=== PATIENT | male | born 1995 | race Caucasian/White ===

== ENCOUNTER 2021-08-16 10:05 | Inpatient (IN) | payer MEDICAID, SELFPAY ==
[2021-08-16 10:05] VITALS: BMI 17.2
[2021-08-16 10:14] VITALS: BP 120/89; PULSE 134; RESP 17; TEMP 36.7; O2SAT 97
[2021-08-16 14:00] VITALS: BP 120/89; PULSE 134; RESP 17; TEMP 36.7; O2SAT 97
--- NOTE | 2021-08-16 17:34 | W.PM.NPUH&PS ---
Providers/Chief Complaint Admitting Physician: Simeon Edwards MD Chief Complaint: hx schizo, HI HPI NPU History of Present Illness Dino Lyles is a 26 year old male who was admitted to an outside hospital with concerns of psychosis and being off of his medication, concerns for homicidal ideation with a history of schizophrenia, recent discharge from outside hospital with recent resumption of his medication, but still with significant symptoms. He was transferred to [facility] and admitted to the neuropsychiatric unit for definitive treatment of those issues. He presents today reporting that he has been hospitalized at least five times before this, but reports the last hospitalization was maybe a year ago, which consultation with family suggested that is incorrect, and he was just recently in the hospital in the last month and not in the last week or so. He reports that he has not had outpatient services recently but has had treatment in [place]. He reports he has been on Invega but tells a very convoluted story about him being on Invega and whether the Invega is helpful. The report from the family is that he had been off of the Invega for some time and recently was hospitalized and restarted on it, and his story that he is taking the Invega now, is accurate reportedly, but the inaccuracy is that he has only been reportedly taking it again, if he is taking it for about a week or so. He reports he does not feel the Invega is helping or at least completely clearing his symptom clusters. Mom reports that even on the Invega, which he feels he is taking it as prescribed, that he does not seem to be able to function in the social settings that he needs to be in, raising concerns for the need for a change. He reports smoking about a half pack of cigarettes a day, drinking alcohol socially, endorsing marijuana use daily. He reports he has had issues with methamphetamine. It is unclear how recently. He reports he has been to a rehab in the past and has had a DUI. When asked when this first started happening when he was having voices and paranoia, and having concerns for schizophrenia, he said that it started when he started taking the Invega, and so we had a long discussion about that and eventually he was able to say that it was not when the Invega started, it was when the schizophrenia started, but then he could not give any sense of whether there were psychotic symptoms predating the drug use. He did report having a presentation of psychosis likely four or so years ago that the Invega did initially treat, and he reports that it was working but that it stopped working, but then he could give no history about his adherence to the medication. He denies any history of suicide attempts, denies any history of self-injurious behavior, denies ever being on Abilify. He does report also having anxiety. We discussed the risks, benefits, and alternatives of adding Abilify to his regimen, and he understood and agreed to proceed as is documented in this note. PSYCHIATRIC HISTORY: As above. SUBSTANCE ABUSE HISTORY: As above. FAMILY HISTORY: He reports mental health issues on his mother?s side of the family, but denies any other addiction, suicide attempts or completions on either side of the family. DEVELOPMENTAL HISTORY: He endorses being breech. He reports learning to walk and talk and meeting his developmental milestones on time, and denies any need for speech therapy, learning support, emotional support, or special education classes when he went off to school. PSYCHOSOCIAL HISTORY: He reports that his mother and father were together when he was born and that he is the only product of that union. He denies that his mother had any other children, but reports his father had two other children. When asked about his childhood, he reported he did not know; but fine he guesses. He denies any emotional, physical, or sexual abuse. He endorses that he graduated from high school, denies any additional training. He endorses being a heterosexual with his longest relationship being six months. He reports he has never been , he has never had children, he has never been in the , and endorses being Confucianist. He reports that his longest work history is about six months. He currently lives in a house with his mom and not clear if he meant her roommates or his roommates. LEGAL HISTORY: He reports he has been to snf maybe four times; the longest time was seven months. MEDICAL HISTORY: Denied. Meds NPU Home Medications Medication Instructions Recorded Confirmed Last Taken Type benztropine 1 mg PO DAILY 08/16/21 08/16/21 Unknown History paliperidone [Invega] 6 mg PO QAM 08/16/21 08/16/21 Unknown History Allergies Allergy/AdvReac Type Severity Reaction Status Date / Time haloperidol [From Haldol] Allergy Unknown Verified 08/16/21 18:58 Mental Status Exam MSE Comments: This is an underweight, thin, white male, in hospital scrubs, with limited grooming, and eye contact. No abnormal movements except for psychomotor retardation. Semi-cooperative with exam in mild distress. Speech was decreased rate and volume. Mood described as I don?t know; affect slightly irritable. Thought process, mostly organized. Thought content: patient denied any suicidal or homicidal ideation, there were no delusions reported or noted, but there was some concern for paranoia. He denied any auditory or visual hallucinations but has had them. Attention and concentration were limited, and memory was mostly reliable, but none were formally tested. He is alert and oriented times three. Insight and judgment are limited, and impulse control is impaired. Vitals/I&O/Wt Last Vital Signs Temp 98.0 F 08/16/21 14:00 Pulse 134 H 08/16/21 14:00 Resp 17 08/16/21 14:00 BP 120/89 08/16/21 14:00 Pulse Ox 97 08/16/21 14:00 A&P Assessment and plan (1) Schizophrenia: Status: Acute (2) Methamphetamine dependence: Status: Acute Additional A&P Information This is a 26-year-old, white male, with long-standing mental health and addiction issues, who presents with issues with adherence to his medication, but reporting an openness to try a new medication and be referred to appropriate services. RECOMMENDATION AND PLAN: 1. Continue current medication. Will add Abilify 10 mg po qam with the possibility of injection down the line, and determine whether a medication to be given with the Invega or whether to taper off the Invega. 2. Encourage individual, group, and milieu therapy. 3. Continue q-15 minute checks for safety. 4. Encourage sober living treatment after discharge, at the highest level of care, to which he is willing to commit. Attestations NPU Medical Necessity Statement*: Inpatient hospitalization is medically necessary and the clinically appropriate intervention, at this time. We will monitor medications and make changes as indicated. Patient will be in the hospital for over two midnights. Likely length of stay is three to five days. Coding Level of Care Code Acute Frame Aligner for Michael Fitch Diagnoses Schizophrenia F20.9 Methamphetamine dependence F15.20
[2021-08-16] MEDS: benztropine 1 mg Tablet PO (19:14)
[2021-08-16] MEDS: ARIPiprazole 10 mg Tablet PO (19:14)
[2021-08-16] MEDS: paliperidone ER 6 mg Tablet PO (19:14)
[2021-08-16 20:16] VITALS: BP 125/81; PULSE 84; RESP 16; O2SAT 98
--- NOTE | 2021-08-16 21:00 | PC.NURSE ---
Patient arrives to unit from [facility] C/O AH & psychosis wanting admit to psych unit, states feelings of losing control. HX of meth abuse, denies SI/HI, states he doesn't think his meds are working. Patient A/Ox3, cooperative during admission, appears anxious & pacing at times.
[2021-08-17 06:00] VITALS: BP 107/66; PULSE 101; RESP 16; O2SAT 98
[2021-08-17] MEDS: paliperidone ER 6 mg Tablet PO (08:35)
[2021-08-17] MEDS: ARIPiprazole 10 mg Tablet PO (08:35)
[2021-08-17] MEDS: benztropine 1 mg Tablet PO (08:35)
[2021-08-17] MEDS: nicotine 2 mg Gum BUCCAL ×2 (11:58→18:21)
[2021-08-17 14:00] VITALS: BP 114/67; PULSE 106; RESP 20; TEMP 36.7; O2SAT 96
--- NOTE | 2021-08-17 18:34 | W.PM.NPUPNS ---
Subjective NPU Subjective: Interval history: Patient presents today reporting that he feels better and wants to go home. Discussed that the medication does seem to be helping and that we need to see if that is a pattern not just a trend. We also agreed that we would reach out to his family and see how they think he is doing to make sure that his sense of improvement is reflecting and how his behavior is manifesting. Mental Status Exam MSE Comments: This is an underweight, thin, white male, in hospital scrubs, with limited grooming, and eye contact. No abnormal movements except for psychomotor retardation. Semi-cooperative with exam in mild distress. Speech was more normal rate and volume. Mood described as a little better; affect less irritable. Thought process, mostly organized. Thought content: patient denied any suicidal or homicidal ideation, there were no delusions reported or noted, but there was some concern for paranoia. He denied any auditory or visual hallucinations but has had them. Attention and concentration were limited, and memory was mostly reliable, but none were formally tested. He is alert and oriented times three. Insight and judgment are limited, and impulse control is impaired, but improving. Vitals/I&O/Wt Last Vital Signs Temp 97.5 F L 08/17/21 19:57 Pulse 98 08/17/21 19:57 Resp 18 08/17/21 19:57 BP 119/78 08/17/21 19:57 Pulse Ox 98 08/17/21 19:57 Weight last 48 hrs Weight 54.431 kg A&P Additional A&P Information (1) Schizophrenia: (2) Methamphetamine dependence: Additional A&P Information This is a 26-year-old, white male, with long-standing mental health and addiction issues, who presents with issues with adherence to his medication, but reporting an openness to try a new medication and be referred to appropriate services. RECOMMENDATION AND PLAN: 1. Continue current medication. Will add Abilify 10 mg po qam with the possibility of injection down the line, and determine whether a medication to be given with the Invega or whether to taper off the Invega. 2. Encourage individual, group, and milieu therapy. 3. Continue q-15 minute checks for safety. 4. Encourage sober living treatment after discharge, at the highest level of care, to which he is willing to commit. Involuntary Hold Information 96 Hour Hold: 96 Hour Involuntary Admission: No Attestations NPU Medical Necessity Statement*: Inpatient hospitalization is medically necessary and the clinically appropriate intervention, at this time. We will monitor medications and make changes as indicated. Likely length of stay is 2-4 days. Coding Level of Care Code Acute Cloth Brushing And Sueding Supervisor for Michael Fitch
[2021-08-17 19:57] VITALS: BP 119/78; PULSE 98; RESP 18; TEMP 36.4; O2SAT 98
[2021-08-17] MEDS: hyDROXYzine 25 mg Capsule 50 MG PO (21:30)
[2021-08-17] MEDS: trazodone 50 mg Tablet PO (21:31)
--- NOTE | 2021-08-17 21:56 | PC.NURSE ---
Patient c/o insomnia. Give hydroxizine 50 mg po and and trazadone 50 mg po.
[2021-08-18] MEDS: nicotine 2 mg Gum BUCCAL ×2 (04:32→09:15)
--- NOTE | 2021-08-18 04:34 | PC.NURSE ---
Patient request for nicotine gum given.
[2021-08-18 06:35] VITALS: BP 123/83; PULSE 93; RESP 20; TEMP 36.5; O2SAT 98
[2021-08-18] MEDS: ARIPiprazole 10 mg Tablet PO (09:03)
[2021-08-18] MEDS: paliperidone ER 6 mg Tablet PO (09:03)
[2021-08-18] MEDS: benztropine 1 mg Tablet PO (09:03)
[2021-08-18 14:00] VITALS: BP 128/80; PULSE 82; RESP 15; TEMP 36.7; O2SAT 97
--- NOTE | 2021-08-18 14:35 | P.NPUPN_ITS ---
Subjective NPU Subjective: Interval history: Patient continues to show improvement on Abilify family reporting that they have not been doing better as well. We discussed the risk-benefit alternatives of discharge in the morning and he understood agreed proceed as is documented in this note. Mental Status Exam MSE Comments: This is an underweight, thin, white male, in hospital scrubs, with limited grooming, and eye contact. No abnormal movements. Cooperative with exam in no acute distress. Speech was more normal rate and volume. Mood described as better; affect less irritable. Thought process, mostly organized. Thought content: patient denied any suicidal or homicidal ideation, there were no delusions reported or noted, but there was some concern for resolving paranoia. He denied any auditory or visual hallucinations but has had them. Attention and concentration were improving, and memory was mostly reliable, but none were formally tested. He is alert and oriented times three. Insight and judgment are limited, but improving and impulse control is improving. Vitals/I&O/Wt Last Vital Signs Temp 98.0 F 08/18/21 14:00 Pulse 82 08/18/21 14:00 Resp 15 08/18/21 14:00 BP 128/80 08/18/21 14:00 Pulse Ox 97 08/18/21 14:00 A&P Additional A&P Information (1) Schizophrenia: (2) Methamphetamine dependence: Additional A&P Information This is a 26-year-old, white male, with long-standing mental health and addiction issues, who presents with issues with adherence to his medication, but reporting an openness to try a new medication and be referred to appropriate services. RECOMMENDATION AND PLAN: 1. Continue current medication. Wel added Abilify 10 mg po qam with the possibility of injection down the line, and determine whether a medication to be given with the Invega or whether to taper off the Invega. 2. Encourage individual, group, and milieu therapy. 3. Continue q-15 minute checks for safety. 4. Encourage sober living treatment after discharge, at the highest level of care, to which he is willing to commit. Involuntary Hold Information 96 Hour Hold: 96 Hour Involuntary Admission: No Attestations NPU Medical Necessity Statement*: Inpatient hospitalization is medically necessary and the clinically appropriate intervention, at this time. We will monitor medications and make changes as indicated. Likely length of stay is 1-3 days. Coding Level of Care Code Acute Tab Machine Operator for Chg Fwd
[2021-08-18 21:22] VITALS: BP 131/91; PULSE 94; RESP 16; TEMP 36.5; O2SAT 98
[2021-08-18] MEDS: hyDROXYzine 25 mg Capsule 50 MG PO (23:47)
[2021-08-18] MEDS: trazodone 50 mg Tablet PO (23:47)
[2021-08-19 06:00] VITALS: BP 133/71; PULSE 86; RESP 18; TEMP 36.7; O2SAT 97
--- NOTE | 2021-08-19 06:55 | W.PM.NPUDCS ---
Diagnoses at Discharge Discharge Diagnosis (1) Schizophrenia: Status: Acute (2) Methamphetamine dependence: Status: Acute Reason for Visit Reason for Visit: hx schizo, [place] Brief History: History of Present Illness Dino Lyles is a 26 year old male who was admitted to an outside hospital with concerns of psychosis and being off of his medication, concerns for homicidal ideation with a history of schizophrenia, recent discharge from outside hospital with recent resumption of his medication, but still with significant symptoms. He was transferred to [facility] and admitted to the neuropsychiatric unit for definitive treatment of those issues. He presents today reporting that he has been hospitalized at least five times before this, but reports the last hospitalization was maybe a year ago, which consultation with family suggested that is incorrect, and he was just recently in the hospital in the last month and not in the last week or so. He reports that he has not had outpatient services recently but has had treatment in [place]. He reports he has been on Invega but tells a very convoluted story about him being on Invega and whether the Invega is helpful. The report from the family is that he had been off of the Invega for some time and recently was hospitalized and restarted on it, and his story that he is taking the Invega now, is accurate reportedly, but the inaccuracy is that he has only been reportedly taking it again, if he is taking it for about a week or so. He reports he does not feel the Invega is helping or at least completely clearing his symptom clusters. Mom reports that even on the Invega, which he feels he is taking it as prescribed, that he does not seem to be able to function in the social settings that he needs to be in, raising concerns for the need for a change. He reports smoking about a half pack of cigarettes a day, drinking alcohol socially, endorsing marijuana use daily. He reports he has had issues with methamphetamine. It is unclear how recently. He reports he has been to a rehab in the past and has had a DUI. When asked when this first started happening when he was having voices and paranoia, and having concerns for schizophrenia, he said that it started when he started taking the Invega, and so we had a long discussion about that and eventually he was able to say that it was not when the Invega started, it was when the schizophrenia started, but then he could not give any sense of whether there were psychotic symptoms predating the drug use. He did report having a presentation of psychosis likely four or so years ago that the Invega did initially treat, and he reports that it was working but that it stopped working, but then he could give no history about his adherence to the medication. He denies any history of suicide attempts, denies any history of self-injurious behavior, denies ever being on Abilify. He does report also having anxiety. We discussed the risks, benefits, and alternatives of adding Abilify to his regimen, and he understood and agreed to proceed as is documented in this note. PSYCHIATRIC HISTORY: As above. SUBSTANCE ABUSE HISTORY: As above. FAMILY HISTORY: He reports mental health issues on his mother?s side of the family, but denies any other addiction, suicide attempts or completions on either side of the family. DEVELOPMENTAL HISTORY: He endorses being breech. He reports learning to walk and talk and meeting his developmental milestones on time, and denies any need for speech therapy, learning support, emotional support, or special education classes when he went off to school. PSYCHOSOCIAL HISTORY: He reports that his mother and father were together when he was born and that he is the only product of that union. He denies that his mother had any other children, but reports his father had two other children. When asked about his childhood, he reported he did not know; but fine he guesses. He denies any emotional, physical, or sexual abuse. He endorses that he graduated from high school, denies any additional training. He endorses being a heterosexual with his longest relationship being six months. He reports he has never been , he has never had children, he has never been in the , and endorses being Oriental Orthodox. He reports that his longest work history is about six months. He currently lives in a house with his mom and not clear if he meant her roommates or his roommates. LEGAL HISTORY: He reports he has been to alf maybe four times; the longest time was seven months. MEDICAL HISTORY: Denied. Hospital Course Hospital Course He slowly acclimated to the individual, group and milieu therapies provided. He was somewhat resistant to trying medication but after he agreed to start the medication, Abilify was started with significant provement. He was able to contract for safety prior to discharge. His mother/family were involved in planning and evaluation of his progress. At the outside hospital, patient had routine laboratory studies which were within normal limits except for few outliers. Additionally there was a general medical evaluation which was also within normal limits and revealed no new acute processes. Discharge Summary: At the time of discharge, lethality was denied and psychosis was resolving. Mood and anxiety were well managed. Patient endorsed a plan to avoid all drugs of abuse and follow-up with the aftercare recommendations of the treatment team. Patient was evaluated and deemed to be absent credible lethality, and had achieved the maximum benefit from an inpatient hospitalization, so was discharged. Involuntary Hold Information 96 Hour Hold: 96 Hour Involuntary Admission: No Mental Status Exam MSE Comments: This is an underweight, thin, white male, in hospital scrubs, with adequate grooming and eye contact. No abnormal movements. Cooperative with exam in no acute distress. Speech was more normal rate and volume. Mood described as better; affect less irritable. Thought process, mostly organized. Thought content: patient denied any suicidal or homicidal ideation, there were no delusions reported or noted, but there was some concern for resolving paranoia. He denied any auditory or visual hallucinations but has had them. Attention and concentration were improving, and memory was mostly reliable, but none were formally tested. He is alert and oriented times three. Insight and judgment are limited, but improving and impulse control is improving. Discharge Data Vitals: Last Vital Signs Temp 98.0 F 08/19/21 06:00 Pulse 86 08/19/21 06:00 Resp 18 08/19/21 06:00 BP 133/71 08/19/21 06:00 Pulse Ox 97 08/19/21 06:00 Discharge Plan Discharge Patient Disposition: Home Condition: Stable Prescriptions: New aripiprazole 10 mg Tablet 10 mg PO DAILY 30 Days Qty: 30 RF: 1 Continued benztropine 1 mg tablet 1 mg PO DAILY 30 Days Qty: 30 RF: 1 Invega 6 mg Tablet Extended Release 24hr 6 mg PO QAM 30 Days Qty: 30 RF: 1 Discharge Orders: Discharge Order (Routine); Ordered 08/19/21 Ordered By: Simeon Edwards Discharge Diet: Regular Discharge Activity: Resume usual activity Patient Instructions: Opioid Safety Discharge Attestations NPU Time Spent in Discharge Care*: less than 30 min Specific Discharge Activities: Specific discharge activities: educating patient, discussing with transplant case manager/social workers/dc planners, documenting/other paperwork and evaluating patient/reviewing data Coding Level of Care Code Acute Chg FW DC note Diagnoses Schizophrenia F20.9 Methamphetamine dependence F15.20
[2021-08-19] MEDS: benztropine 1 mg Tablet PO (08:11)
[2021-08-19] MEDS: ARIPiprazole 10 mg Tablet PO (08:11)
[2021-08-19] MEDS: paliperidone ER 6 mg Tablet PO (08:11)
[2021-08-19] MEDS: nicotine 2 mg Gum BUCCAL (09:24)
[2021-08-19 11:16] VITALS: BP 133/71; PULSE 86; RESP 18; TEMP 36.7; O2SAT 97
== END 2021-08-19 11:46 | disposition home or self-care (01) | DRG 885 ==
PROVIDERS: Admitting Provider Psychiatry & Neurology Psychiatry; Visit Provider Psychiatry & Neurology Psychiatry
DX: F20.9 Schizophrenia, unspecified (principal); F15.90 Other stimulant use, unspecified, uncomplicated; F12.90 Cannabis use, unspecified, uncomplicated; F17.210 Nicotine dependence, cigarettes, uncomplicated; Z91.14 Patient's other noncompliance with medication regimen
CPT/HCPCS: 97150; 97165